=== PATIENT | male | born 1990 | race Caucasian/White ===

== ENCOUNTER 2016-12-28 02:39 | Emergency (ER) | payer MEDICAID ==
[~2016-12-28] VITALS: Ht 185.4 cm; Wt 87.0 kg
[2016-12-28] MEDS ORDERED: ONDANSETRON HCL 4MG/2ML VIAL IV ONE (09:15)
[2016-12-28] MEDS ORDERED: LIDOCAINE HCL 1% 20ML VIAL (Pyxis) INJ INFIL ONE (09:15)
[2016-12-28] MEDS ORDERED: MORPHINE SULFATE 4 MG/ML CPJ (NOT FOR IM USE) IV ONE (09:15)
[2016-12-28] MEDS ORDERED: SODIUM CHLORIDE 0.9% 1,000 ML IV ONE (09:15)
[2016-12-28 11:39] LABS: BASOPHILS % 0.3 % (0.0-2.0); EOSINOPHILS % 0.2 % (0.0-5.0); HEMATOCRIT. 38.3 % (42.0-52.0); LYMPHOCYTES % 13.3 % (20.0-50.0); MEAN CORPUSCULAR HEMOGLOBIN 31.5 pg (28.0-32.0); MEAN CORPUSCULAR VOLUME 92.7 fL (80.0-94.0); MEAN PLATELET VOLUME 7.7 fl (7.4-10.4); MONOCYTES % 7.8 % (2.0-8.0); NEUTROPHILS % 78.4 % (40.0-76.0); PLATELET 266 x1000/uL (130-400); RED BLOOD CELL COUNT 4.14 mill/uL (4.7-6.1); RED CELL DISTRIBUTION WIDTH 12.3 % (11.6-14.6)
[2016-12-28 11:51] LABS: CARBON DIOXIDE 30 mEq/L (21-32); CHLORIDE 104 mEq/L (98-107)
[2016-12-28 13:45] VITALS: BP 126/84
== END 2016-12-28 14:05 | disposition home or self-care (01) ==
LOC: ER 02:39
DX: T63.301A Toxic effect of unspecified spider venom, accidental (unintentional), initial encounter (principal); F12.10 Cannabis abuse, uncomplicated; L03.032 Cellulitis of left toe; L03.116 Cellulitis of left lower limb; L03.115 Cellulitis of right lower limb; Z90.49 Acquired absence of other specified parts of digestive tract; Z88.0 Allergy status to penicillin; Y92.89 Other specified places as the place of occurrence of the external cause
CPT/HCPCS: 10061; 36415; 80053; 83605; 85025; 86140; 96361; 96374; 96375; 99285; J2270; J2405; J3490; J7030; X7700; Z7610

== ENCOUNTER 2018-03-21 00:21 | Emergency (ER) | payer SELFPAY ==
[~2018-03-21] VITALS: Ht 185.4 cm; Wt 89.4 kg
[2018-03-21] MEDS ORDERED: LIDOCAINE HCL 1% 20ML VIAL (Pyxis) INJ INFIL ONE (04:00)
[2018-03-21 04:08] VITALS: BP 126/57
[2018-03-21] MEDS ORDERED: LIDOCAINE HCL/PF 1% 10 MG/ML 5ML VIAL IJ NR (04:15)
== END 2018-03-21 06:29 | disposition home or self-care (01) ==
LOC: ER 00:21
DX: L02.31 Cutaneous abscess of buttock (principal); F12.10 Cannabis abuse, uncomplicated; Z88.0 Allergy status to penicillin; Z90.89 Acquired absence of other organs
CPT/HCPCS: 10060; 99283; J3490; Z7610

== ENCOUNTER 2019-08-27 19:35 | Emergency (ER) | payer SELFPAY ==
[~2019-08-27] VITALS: Ht 185.4 cm; Wt 102.2 kg
[2019-08-27] MEDS ORDERED: IBUPROFEN 600MG TABLET PO STA (21:20)
[2019-08-27 23:35] VITALS: BP 150/78
== END 2019-08-27 23:36 | disposition home or self-care (01) ==
LOC: ER 19:35
DX: R05 Cough (principal); R07.81 Pleurodynia; F12.10 Cannabis abuse, uncomplicated; Z90.49 Acquired absence of other specified parts of digestive tract; Z88.0 Allergy status to penicillin
CPT/HCPCS: 71045; 99283

== ENCOUNTER 2019-08-31 16:56 | Emergency (ER) | payer SELFPAY ==
[~2019-08-31] VITALS: Ht 185.4 cm; Wt 99.0 kg
[2019-08-31 17:22] VITALS: BP 159/89
== END 2019-08-31 20:34 | disposition left against medical advice (07) ==
LOC: ER 16:56
DX: R05 Cough (principal); R50.9 Fever, unspecified; Z53.21 Procedure and treatment not carried out due to patient leaving prior to being seen by health care provider